=== PATIENT | male | born 1970 | race Hispanic/Latino ===

== ENCOUNTER 2017-02-26 10:35 | Day surgery (SDC) | payer OTHER ==
[~2017-02-26] VITALS: Ht 167.6 cm; Wt 90.7 kg
[~2017-02-26 10:35] MED LIST: ADVAIR 500/501 DISK IH; ADVAIR HFA120 INHALA IH; CALPHRON667 MG PO; COREG6.25 M1 PO; DULCOLAX5 MG PO; ENULOSE10 GM/15 M PO; LASIX80 MG PO; METOLAZONE10 MG PO; NORVASC5 MG PO; PROAIR HFA8.5 GM IH; ROCALTROL0.25 MCG PO; SINGULAIR10 MG PO; STOOL SOFTENER100 M1 PO; VITAMIN D31000 UNI2 PO; ZESTRIL40 MG PO
[2017-02-26 11:15] LABS: HEMATOCRIT 35.6 % (38.0-50.0); MCHC 30.1 G/DL (30.0-36.0); MCV 93.2 FL (86-99); PLATELET COUNT 241 K/uL (156-360); RBC DIS.WIDTH-CV 14.3 % (11.8-14.6); RBC DIS.WIDTH-SD 48.3 % (39-53); RED BLOOD COUNT 3.82 M/uL (4.00-5.50); WHITE BLOOD COUNT 11.7 K/uL (4.1-10.2)
[2017-02-26 11:22] VITALS: BP 161/91
[2017-02-26 11:51] LABS: ANION GAP 13 MEQ/L (2-14); CHLORIDE 100 MEQ/L (99-109); GFR ESTIMATE (CALCULATED) 6 mL/min/; GLUCOSE 119 mg/dL (70-99); POTASSIUM 4.5 MEQ/L (3.7-5.4); SAMPLE HEMOLYSIS CHECK 0; SAMPLE ICTERIC CHECK 0; SAMPLE LIPEMIA CHECK 0; SODIUM 142 MEQ/L (136-147); UREA NITROGEN (BUN) 47 mg/dL (9-23)
[2017-02-26] MEDS ORDERED: NORCO 5/3251 TABLET PO (13:43)
[2017-02-26 13:47] LABS: POINT-OF-CARE METER ID UU13113675
[2017-02-26 14:00] VITALS: BP 135/75
[2017-02-26 14:12] VITALS: BP 150/75
[2017-02-26 15:17] VITALS: BP 140/89
== END 2017-02-26 15:34 | disposition home or self-care (01) ==
LOC: SDC 10:35
PROVIDERS: Surgery
DX: T85.611A Breakdown (mechanical) of intraperitoneal dialysis catheter, initial encounter (principal); Y83.1 Surgical operation with implant of artificial internal device as the cause of abnormal reaction of the patient, or of later complication, without mention of misadventure at the time of the procedure; I12.0 Hypertensive chronic kidney disease with stage 5 chronic kidney disease or end stage renal disease; N18.6 End stage renal disease; Z99.2 Dependence on renal dialysis; D63.1 Anemia in chronic kidney disease; E21.3 Hyperparathyroidism, unspecified; I42.9 Cardiomyopathy, unspecified; E66.9 Obesity, unspecified; Z68.32 Body mass index [BMI] 32.0-32.9, adult; Z88.0 Allergy status to penicillin; Z91.09 Other allergy status, other than to drugs and biological substances; Z91.013 Allergy to seafood; Z84.1 Family history of disorders of kidney and ureter
CPT/HCPCS: 80048; 82948; 85027; 87070; 87075; 87205; 93005; 94640; C1750; J0690; J2405; J3010; S0020

== ENCOUNTER → 2017-04-04 | Outpatient (CLI) | payer OTHER ==
[~2017-04-04] VITALS: Ht 167.6 cm; Wt 82.1 kg
[~2017-04-04] MED LIST changes: +ASTAGRAF XL1 MG PO; +ASTAGRAF XL5 MG PO; +BACTRIM,SEPT1 TABLE1 PO; +CLONIDINE HCL0.1 MG PO; +DAILY MULTIPLE1 EACH PO; +FOLIC ACID1 MG PO; +LANTUS 3 M100 UNITS1 SC; +MAGNESIUM400 M1 PO; +MYCELEX10 MG PO; +MYFORTIC360 MG PO; +NORCO 5/3251 TABLET PO; +NOVOLOG PE100 UNITS/ SC; +PROTONIX40 MG PO; +ROXICODONE5 MG PO; +SENNA LAX8.6 MG PO; +VALCYTE450 MG PO
[2017-04-04 13:57] LABS: POINT-OF-CARE METER ID UU13113694
[2017-04-04 14:19] LABS: INTER. NORMALIZED RATIO 1.1; PROTHROMBIN TIME 11.3 (9.2-11.2); PTT 29.5 (25-32)
[2017-04-04 14:36] LABS: MCH 28.5 PG (29.0-34.0); MCHC 32.2 G/DL (30.0-36.0); MCV 88.5 FL (86-99); MEAN PLAT.VOLUME 9.2 uM^3 (9.0-12.4); PLAT.SUFFICIENCY INCREASED; PLATELET COUNT 357 K/uL (156-360); RBC DIS.WIDTH-CV 14.9 % (11.8-14.6); RBC DIS.WIDTH-SD 48.7 % (39-53); RED BLOOD COUNT 4.18 M/uL (4.00-5.50); WHITE BLOOD COUNT 10.3 K/uL (4.1-10.2)
[2017-04-04 17:26] LABS: POINT-OF-CARE METER ID UU13113675
== END | disposition home or self-care (01) ==
LOC: AMB 13:14
PROVIDERS: Internal Medicine Pulmonary Disease
DX: R91.8 Other nonspecific abnormal finding of lung field (principal)
CPT/HCPCS: 82948; 85027; 85610; 85730; 87070; 87077; 87102; 87116; 87205; 87206; J0461; J2175; J2250; J2550; J3010